=== PATIENT | male | born 1970 | race African-American/Black ===

== ENCOUNTER 2024-11-28 15:08 | Emergency (ER) | payer MEDICAID ==
[~2024-11-28] VITALS: Ht 182.9 cm; Wt 102.0 kg
[2024-11-28 15:11] VITALS: O2SAT 98
[2024-11-28] MEDS: ASPIRIN 325MG EC TABLET PO ONE (15:22)
[2024-11-28] MEDS: SODIUM CHLORIDE 0.9% 1,000 ML IV ONE ×2 (15:23→16:34)
[2024-11-28] MEDS: ONDANSETRON HCL 4MG/2ML INJ IV ONE (15:25)
[2024-11-28] MEDS: LORAZEPAM 2MG/ML UD SYRINGE IV SCH (15:26)
[2024-11-28 15:46] LABS: BASOPHILS % 0.8 % (0.0-2.0); EOSINOPHILS % 0.1 % (0.0-5.0); HEMATOCRIT. 38.0 % (42.0-52.0); HEMOGLOBIN. 12.5 g/dL (14.0-18.0); LYMPHOCYTES % 25.2 % (20.0-50.0); MEAN PLATELET VOLUME 8.0 fl (7.4-10.4); MONOCYTES % 7.9 % (2.0-8.0); NEUTROPHILS % 66.0 % (40.0-76.0); PLATELET 254 x1000/uL (130-400); RED BLOOD CELL COUNT 3.80 mill/uL (4.7-6.1); RED CELL DISTRIBUTION WIDTH 17.9 % (11.6-14.6)
[2024-11-28 16:12] LABS: CREATININE 1.1 mg/dL (0.6-1.3)
[2024-11-28 16:13] LABS: TROPONIN I HIGH SENSITIVITY 9 ng/L (3.0-53); UREA NITROGEN BLOOD 6 mg/dL (9-23)
[2024-11-28 16:14] LABS: ASPARTATE AMINOTRANSFERASE 159 IU/L (<34)
[2024-11-28 16:15] LABS: BILIRUBIN DIRECT 0.4 mg/dL (<=3.0); BILIRUBIN TOTAL 0.9 mg/dL (0.1-1.0); PROTEIN TOTAL 8.2 g/dL (6.0-8.3)
[2024-11-28] MEDS: CALCIUM GLUCONATE 100MG/ML 10ML VIAL IV ONE (16:34)
[2024-11-28] MEDS: POTASSIUM CHLORIDE 20MEQ/PACKET PO ONE ×2 (16:34→20:21)
[2024-11-28] MEDS: MAGNESIUM 4 G PREMIX 100 ML IV ONE (16:36)
[2024-11-28] MEDS: ACETAMINOPHEN 325MG TABLET PO ONE (18:33)
[2024-11-28 19:30] LABS: CREATININE 0.8 mg/dL (0.6-1.3)
[2024-11-28 19:31] LABS: UREA NITROGEN BLOOD < 5 mg/dL (9-23)
[2024-11-28 19:32] LABS: TROPONIN I HIGH SENSITIVITY 13 ng/L (3.0-53)
[2024-11-28] MEDS ORDERED: POTA10CA93 MT (19:58)
[2024-11-28 20:00] VITALS: BP 199/115; PULSE 111; RESP 12; TEMP 36.9; O2SAT 97
[2024-11-28] MEDS ORDERED: IOHEXOL-350 100 ML BOTTLE ONE (23:16)
== END 2024-11-28 20:29 | disposition home or self-care (01) ==
LOC: ER 15:08 → EDBEDREQTM 19:22 → EDBEDREQ 19:22 → ER 20:29 → CMPBEDREQ 11-29 07:51
DX: K92.0 Hematemesis (principal); R07.9 Chest pain, unspecified; F10.239 Alcohol dependence with withdrawal, unspecified; E87.6 Hypokalemia; E83.42 Hypomagnesemia; I10 Essential (primary) hypertension
CPT/HCPCS: 80076; 80048; 80320; 82140; 83880; 83605; 83735; 85025; 85379; 84484; 36415; 71045; 71275; 93005; 96361; 96365; 96375; 99285; Q9967; J0612; J2060; J3475; J2405; J7030; Z7610 ×2; G0480